=== PATIENT | female | born 1980 | race Caucasian/White ===

== ENCOUNTER 2016-12-10 15:00 | Emergency (ER) | payer OTHER ==
[2016-12-10 15:37] VITALS: BP 127/83
[2016-12-10] MEDS ORDERED: DEXAMETHASONE 10 MG/ML VIAL PO STA (16:54)
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
[2016-12-10] MEDS ORDERED: DEXAMETHASONE 10 MG/ML VIAL ONE (17:02)
== END 2016-12-10 17:04 | disposition home or self-care (01) ==
LOC: ED 15:00
DX: J01.00 Acute maxillary sinusitis, unspecified (principal); F17.200 Nicotine dependence, unspecified, uncomplicated
CPT/HCPCS: 99283

== ENCOUNTER 2017-02-01 12:29 | Emergency (ER) | payer OTHER ==
[2017-02-01 12:43] VITALS: BP 118/74
[2017-02-01] MEDS ORDERED: AMOXICILLIN 250 MG CAPSULE PO STA (13:47)
[2017-02-01] MEDS ORDERED: IBUPROFEN 400 MG TABLET PO STA (13:47)
--- NOTE | 2017-02-01 13:50 | ED Physician Documentation ---
History of Present Illness - Stated complaint Stated Complaint: CONGESTED/FEVER - Chief complaint Chief Complaint: General - Additonal information Additional information: hx from pt 37 f denies preg fever R ear ache myalgias kids sick with fever cough KUMAR mylagia too Review of Systems Constitutional: reports: Fever, Myalgias, Fatigue Ears: reports: Ear pain Respiratory: denies: Cough GI: denies: Abdominal Pain, Nausea, Vomiting : denies: Now EGA Immunocompromised: denies: Immunocompromised PD PAST MEDICAL HISTORY - Past Medical History Past Medical History: Yes Respiratory: Pneumonia Musculoskeletal: Chronic back pain - Past Surgical History Past Surgical History: Yes 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, Other - Present Medications Home Medications: Ambulatory Orders Medication Instructions Recorded Confirmed Amox/Clav 875/125 [Augmentin] 1 each PO Q12H #20 tablet 12/10/16 Amoxicillin 500 mg PO Q8H #30 capsule 02/01/17 - Allergies Allergies/Adverse Reactions: Allergies Allergy/AdvReac Type Severity Reaction Status Date / Time avocado Allergy Nausea Verified 12/10/16 16:31 pepper Allergy Anaphylaxis Verified 12/10/16 16:31 - Social History Does the pt smoke?: Yes Smoking Status: Current every day smoker Does the pt drink ETOH?: No Does the pt have substance abuse?: Yes - Immunizations Immunizations are current?: Yes - POLST Patient has POLST: No PD ED PE NORMAL - Vitals Vital signs reviewed: Yes - General General: Alert and oriented X 3 - HEENT HEENT: Moist mucous membranes. No: Ears normal (R AOM) - Neck Neck: Supple, no meningeal sign - Cardiac Cardiac: RRR - Respiratory Respiratory: No respiratory distress, Clear bilaterally - Derm Derm: Normal color - Extremities Extremities: Normal ROM s pain - Neuro Neuro: Alert and oriented X 3 Results - Vitals Vitals: Vital Signs - 24 hr 02/01/17 12:42 Temperature 36.3 C L Heart Rate 62 Respiratory 16 Rate Blood Pressure 118/74 O2 Saturation 99 Oxygen O2 Source Room air - Labs Labs: Laboratory Tests 02/01/17 13:44 Influenza A (Rapid) Negative Influenza B (Rapid) Negative Influenza Types A,B Ag - Departure - Departure Disposition: Home, Self Care Clinical Impression: Otitis media Qualifiers: Otitis media type: allergic Chronicity: acute Laterality: right Recurrence: not specified as recurrent Qualified Code(s): H65.111 - Acute and subacute allergic otitis media (mucoid) (sanguinous) (serous), right ear Condition: Good Instructions: ED Otitis Media Acute Adult Prescriptions: Amoxicillin 500 mg PO Q8H #30 capsule Comments: The influenza swab was negative (so doubtful any of the three of you have influenza) Your son's xray does not show pneumonia (so doubtful any of the three of you have pneumonia) But you have an ear infection so I have prescribed antibiotics
[2017-02-01] MEDS ORDERED: AMOXICILLIN 250 MG CAPSULE PO ONE (14:23)
[2017-02-01] MEDS ORDERED: IBUPROFEN 400 MG TABLET PO ONE (14:23)
== END 2017-02-01 15:52 | disposition home or self-care (01) ==
LOC: ED 12:29
DX: H65.111 Acute and subacute allergic otitis media (mucoid) (sanguinous) (serous), right ear (principal); F17.200 Nicotine dependence, unspecified, uncomplicated
CPT/HCPCS: 87275; 87276; 99283; A9270

== ENCOUNTER 2017-04-25 16:18 | Emergency (ER) | payer OTHER ==
[2017-04-25 17:12] LABS: BILIRUBIN,URINE NEGATIVE (NEGATIVE); GLUCOSE, URINE (UA) NEGATIVE (NEGATIVE); KETONES,URINE (UA) NEGATIVE (NEGATIVE); LEUKOCYTE ESTERASE, URINE NEGATIVE (NEGATIVE); NITRITE,URINE NEGATIVE (NEGATIVE); OCCULT BLOOD,URINE SMALL (NEGATIVE); PH,URINE 6.5 PH (5.0-7.5); PROTEIN,URINE NEGATIVE (NEGATIVE); UROBILINOGEN,URINE 0.2 (NORMAL) E.U./dL (NORMAL)
[2017-04-25 17:16] LABS: CLARITY,URINE CLEAR (CLEAR); HCG UR QUAL NEGATIVE
[2017-04-25 17:19] LABS: BACTERIA,URINE Rare /HPF (None Seen); SQUAMOUS EPITHELIAL CELL,UR MOD Squamous (<= Few)
--- NOTE | 2017-04-25 17:32 | ED Physician Documentation ---
History of Present Illness - Stated complaint Stated Complaint: NVD - Chief complaint Chief Complaint: Abd Pain - Additonal information Additional information: hx from pt 37 y/o f denies preg s.p tubal and LMP no to ER with congestion ear pain cough NVD works at [employer] and wants to know if she is contagious Review of Systems Constitutional: denies: Fever Ears: reports: Ear pain Nose: reports: Congestion Throat: reports: Sore throat (mild - scratchy) Respiratory: reports: Cough GI: reports: Vomiting, Diarrhea. 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, Other - Present Medications Home Medications: Ambulatory Orders Medication Instructions Recorded Confirmed Amoxicillin 500 mg PO Q8H #21 capsule 04/25/17 Ondansetron Odt [Zofran] 4 mg TL Q6H PRN #10 tablet 04/25/17 - Allergies Allergies/Adverse Reactions: Allergies Allergy/AdvReac Type Severity Reaction Status Date / Time avocado Allergy Nausea Verified 04/25/17 16:23 pepper Allergy Anaphylaxis Verified 04/25/17 16:23 - Social History Does the pt smoke?: Yes Smoking Status: Current every day smoker Does the pt drink ETOH?: No Does the pt have substance abuse?: Yes - Immunizations Immunizations are current?: Yes - POLST Patient has POLST: No PD ED PE NORMAL - Vitals Vital signs reviewed: Yes - HEENT HEENT: Moist mucous membranes (erythema and small exudate to pahrynx - am going to tx AOM with amox so did not strep swab). No: Ears normal (R AOM, L dull) - Neck Neck: Supple, no meningeal sign - Cardiac Cardiac: RRR - Respiratory Respiratory: No respiratory distress, Clear bilaterally - Abdomen Abdomen: Soft, Non tender - Neuro Neuro: Alert and oriented X 3 Results - Vitals Vitals: Vital Signs - 24 hr 04/25/17 16:21 Temperature 36.5 C Heart Rate 84 Respiratory 16 Rate Blood Pressure 129/84 H O2 Saturation 100 Oxygen O2 Source Room air - Labs Labs: Laboratory Tests 04/25/17 16:55 Urine Color YELLOW Urine Clarity CLEAR Urine pH 6.5 Ur Specific [place] 1.020 Urine Protein NEGATIVE Urine Glucose (UA) NEGATIVE Urine Ketones NEGATIVE Urine Occult Blood SMALL H Urine Nitrite NEGATIVE Urine Bilirubin NEGATIVE Urine Urobilinogen 0.2 (NORMAL) Ur Leukocyte Esterase NEGATIVE Urine RBC 6-10 H Urine WBC 0-3 Ur Squamous Epith Cells MOD Squamous H Urine Bacteria Rare Ur Microscopic Review INDICATED Urine Culture Comments NOT INDICATED Urine HCG, Qual NEGATIVE Departure - Departure Disposition: 01 Home, Self Care Clinical Impression: Viral syndrome Otitis media Qualifiers: Otitis media type: suppurative Chronicity: acute Laterality: right Recurrence: not specified as recurrent Spontaneous tympanic membrane rupture: without spontaneous rupture Qualified Code(s): H66.001 - Acute suppurative otitis media without spontaneous rupture of ear drum, right ear Condition: Good Instructions: ED Otitis Media Acute Adult, ED Viral Syndrome Follow-Up: Jose Avilez MD [Primary Care Provider] - Prescriptions: Amoxicillin 500 mg PO Q8H #21 capsule Ondansetron Odt [Zofran] 4 mg TL Q6H PRN #10 tablet PRN Reason: Nausea / Vomiting Comments: It looks like you have a viral infection causing the cough vomiting and diarrhea and have developed a secondary ear infection. 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
[2017-04-25 18:14] VITALS: BP 122/87
== END 2017-04-25 18:12 | disposition home or self-care (01) ==
LOC: ED 16:18
DX: B34.9 Viral infection, unspecified (principal); H66.001 Acute suppurative otitis media without spontaneous rupture of ear drum, right ear; F17.200 Nicotine dependence, unspecified, uncomplicated
CPT/HCPCS: 81001; 81003; 81025; 87086; 99283

== ENCOUNTER 2017-08-19 17:37 | Emergency (ER) | payer OTHER ==
[2017-08-19 17:53] VITALS: BP 140/86
--- NOTE | 2017-08-19 18:26 | ED Physician Documentation ---
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, Other - Present Medications Home Medications: Ambulatory Orders Medication Instructions Recorded Confirmed Amoxicillin 500 mg PO Q8H #21 capsule 04/25/17 Ondansetron Odt [Zofran] 4 mg TL Q6H PRN #10 tablet 04/25/17 Ibuprofen [Motrin] 400 mg PO Q6H PRN #30 tablet 08/19/17 - Allergies Allergies/Adverse Reactions: Allergies Allergy/AdvReac Type Severity Reaction Status Date / Time avocado Allergy Nausea Verified 04/25/17 16:23 pepper (genus Capsicum) Allergy Anaphylaxis Verified 04/25/17 16:23 [pepper] - Social History Does the pt smoke?: Yes Smoking Status: Current every day smoker Does the pt drink ETOH?: No Does the pt have substance abuse?: No - Immunizations Immunizations are current?: Yes - POLST Patient has POLST: No PD ED PE NORMAL - Extremities Extremities: Other (R knee + effusion, quad and patellar tendon NT, patella NT, TTP medial jt line, no ACL MCL LCL laxity, pain no opp with meniscal testing but then caught as I straightened the knee back out, MSV intact) Results - Vitals Vitals: Vital Signs - 24 hr 08/19/17 17:50 Temperature 36.9 C Heart Rate 87 Respiratory 18 Rate Blood Pressure 140/86 H O2 Saturation 100 Oxygen O2 Source Room air - Rads (name of study) knee Radiology: See rad report (neg) PD MEDICAL DECISION MAKING - Sepsis Event Vital Signs: Vital Signs - 24 hr 08/19/17 17:50 Temperature 36.9 C Heart Rate 87 Respiratory 18 Rate Blood Pressure 140/86 H O2 Saturation 100 Oxygen O2 Source Room air Departure - Departure Disposition: 01 Home, Self Care Clinical Impression: Knee injury Qualifiers: Encounter type: initial encounter Laterality: left Qualified Code(s): S89.92XA - Unspecified injury of left lower leg, initial encounter Condition: Good Instructions: ED Meniscal Injury Knee Poss Follow-Up: [facility] [Provider Group] Prescriptions: Ibuprofen [Motrin] 400 mg PO Q6H PRN #30 tablet PRN Reason: Pain Comments: The xray is fine. But your exam indicates you may have torn a meniscus. It is OK for you to go home We gave you a brace to support and protect the knee Please follow up with orthopedics for further evaluation Forms: Activity restrictions
--- NOTE | 2017-08-19 18:39 | XRAY Report ---
Procedure Date: 08/19/2017 Accession Number: [id number] / [id number] Procedure: XR - Knee 4 View RT CPT Code: FULL RESULT: EXAM: RIGHT KNEE RADIOGRAPHY EXAM DATE: 08/19/2017 06:19 PM. CLINICAL HISTORY: Twist injury. COMPARISON: None. TECHNIQUE: 4 views. FINDINGS: Bones: No acute fractures or suspicious bone lesions. Joints: No effusion. No subluxations. Soft Tissues: Unremarkable. IMPRESSION: Unremarkable knee radiography. [facility]
== END 2017-08-19 19:17 | disposition home or self-care (01) ==
LOC: ED 17:37
DX: S89.91XA Unspecified injury of right lower leg, initial encounter (principal); X50.0XXA Overexertion from strenuous movement or load, initial encounter; F17.200 Nicotine dependence, unspecified, uncomplicated
CPT/HCPCS: 99282; 99283

== ENCOUNTER 2017-11-05 10:01 | Outpatient (CLI) | payer OTHER ==
--- NOTE | 2017-11-05 15:55 | MRI Report ---
Reason: PAIN IN RIGHT KNEE Procedure Date: 11/05/2017 Accession Number: [id number] / [id number] Procedure: MRI - Knee RT W/O CPT Code: FULL RESULT: EXAM: RIGHT KNEE MRI WITHOUT CONTRAST EXAM DATE: 11/05/2017 10:31 AM. CLINICAL HISTORY: Right knee pain. COMPARISON: Radiograph 08/19/2017. TECHNIQUE: Multiplanar, multisequence T1-weighted and fluid-sensitive sequences of the knee without contrast. Other: None. FINDINGS: Bones: No fractures or subluxations. No marrow edema. No bone lesions. Articular Cartilage: Unremarkable. Medial Meniscus: The medial meniscus is intact. Lateral Meniscus: The posterior horn of the lateral meniscus has a blunted inner margin. There appears to be a flap fragment displaced inferior to the posterior horn (series 601, image 23; series 701, image 17). Cruciate Ligaments: The anterior and posterior cruciate ligaments are intact. Collateral Ligaments: The medial collateral and lateral collateral ligamentous structures are intact. Tendons: The quadriceps, patellar, semimembranosus, and popliteus tendons are unremarkable. Musculature: No edema or fatty atrophy. Other: No effusion. No popliteal cyst. No loose bodies. The medial and lateral retinacula are intact. The subcutaneous tissues and fat pads are unremarkable. IMPRESSION: 1. Flap tear of the lateral meniscus. [facility] MUSCULOSKELETAL RADIOLOGY SECTION
== END 2017-11-05 10:02 | disposition home or self-care (01) ==
LOC: DI 10:01
PROVIDERS: ATTEND Family Medicine
DX: M23.251 Derangement of posterior horn of lateral meniscus due to old tear or injury, right knee (principal)

== ENCOUNTER 2017-12-19 06:24 | Day surgery (SDC) | payer OTHER ==
[2017-12-19] MEDS ORDERED: ceFAZolin 2 GM/50 ML 2 GM/50 ML BAG IV ONE (06:26)
[2017-12-19] MEDS ORDERED: LACTATED RINGERS 1,000 ML IV ONE ×2 (06:30→08:05)
[2017-12-19 06:53] LABS: HCG UR QUAL NEGATIVE
[2017-12-19] MEDS ORDERED: BUPIVACAINE 0.5% PF 30 ML VIAL ONE (07:09)
[2017-12-19] MEDS ORDERED: ROPIVACAINE 0.5% PF 20 ML AMPULE ONE (07:09)
[2017-12-19] MEDS ORDERED: EPINEPHrine 1 MG/ML AMP ONE (07:10)
--- NOTE | 2017-12-19 07:10 | ANESTHESIA ---
Pre-Anesthesia VS, & Labs - Diagnosis right knee meniscus tear - Procedure right knee arthroscopy, meniscus debridement Vital Signs: Temp Pulse Resp BP Pulse Ox 36.0 C L 78 16 132/89 H 100 12/19/17 06:36 12/19/17 06:36 12/19/17 06:36 12/19/17 06:36 12/19/17 06:36 Height 5 ft 10 in Weight (kg) 68.04 kg Body Mass Index 22.2 - NPO >8 hours - Is Patient ?: No - Lab Results Lab results reviewed: Yes Home Medications and Allergies Allergies/Adverse Reactions: Allergies Allergy/AdvReac Type Severity Reaction Status Date / Time avocado Allergy Nausea Verified 12/12/17 15:42 pepper (genus Capsicum) Allergy Anaphylaxis Verified 12/12/17 15:42 [pepper] Anes History & Medical History - Anesthetic History Anesthesia Complications: reports: Slow wake-up Family history of Anesthesia Complications: Denies Family history of Malignant Hyperthermia: Denies - Medical History Cardiovascular: reports: None Pulmonary: reports: Other Urinary: reports: None Musculoskeletal: reports: Other Endocrine/Autoimmune: reports: None Skin: reports: None Smoking Status: Current every day smoker - Surgical History Gynecologic: Dilation and currettage Orthopedic: Other Exam General: Alert, Oriented x3, Cooperative, No acute distress Dental: Other (crown) Mouth Openin Fingerbreadth Neck Mobility: Normal Mallampati classification: I Thyromental Distance: greater than 6 cm Respiratory: Lungs clear, Normal breath sounds, No respiratory distress, No accessory muscle use Cardiovascular: Regular rate, Normal S1, Normal S2, No murmurs Mental/Cognitive Status: Alert/Oriented X3, Normal for patient Cognitive Status: Within normal limits Plan Anesthesia Type: General Consent for Procedure(s) Verified and Reviewed: Yes Code Status: Attempt Resuscitation ASA classification: 2-Mild systemic disease Is this case an emergency?: No
[2017-12-19] MEDS ORDERED: BUPIVACAINE 0.25% PF 30 ML VIAL ONE (07:20)
[2017-12-19] MEDS ORDERED: BUPIVACAINE 0.25% PF 30 ML VIAL SUBQ ONE ×2 (08:00)
[2017-12-19] MEDS ORDERED: PROPOFOL 200 MG/20 ML VIAL IVP ONE (08:06)
[2017-12-19] MEDS ORDERED: KETOROLAC 30 MG/ML VIAL IVP ONE (08:06)
[2017-12-19] MEDS ORDERED: ONDANSETRON 4 MG/2 ML VIAL IVP ONE (08:06)
[2017-12-19] MEDS ORDERED: MIDAZOLAM 2 MG/2 ML VIAL IVP ONE (08:06)
[2017-12-19] MEDS ORDERED: DEXAMETHASONE 4 MG/ML VIAL IVP ONE (08:06)
[2017-12-19] MEDS: HYDROmorphone 1 MG/ML CARPUJECT ONE ×2 (08:35→08:53)
[2017-12-19] MEDS ORDERED: ACETAMINOPHEN 1,000 MG/100 ML 100 ML IV ONE (08:38)
[2017-12-19] MEDS ORDERED: ONDANSETRON 4 MG/2 ML VIAL IVP PRN (08:53)
[2017-12-19] MEDS ORDERED: oxyCODONE 5 MG TABLET PO PRN (08:53)
--- NOTE | 2017-12-19 09:11 | OPERATIVE REPORT ---
Operative Report - General Procedure Date: 12/19/17 Planned Procedure: right knee arthroscopic meniscus debridement Pre-Op Diagnosis: right knee lateral meniscus tear Procedure Performed: Right knee arthroscopic lateral meniscus debridement Post Op Diagnosis: right knee lateral meniscus tear - Procedure Note Primary Surgeon: Laureano Mcmahan Secondary Surgeon: Pawel Manzanares Anesthesia Technique: General LMA Pathology: None IV Fluids (mL): 1,000 Estimated Blood Loss (mL): 1 Complications: None - Other Other Information/Narrative: Indication For Surgery: 37F who injured her knee in July 2017 while running. She has persistent pain and mechanical symptoms that have no responded to conservative measures. The risks, benefits, and alternatives were discussed. Risks include pain, bleeding, infection, damage to nearby structures and cartilage, lack of symptom relief, need for further surgery, DVT, PE, stroke, and . Written consent was obtained. Examination Under Anesthesia: ROM equal to the contralateral side. Stable dial at 30 & 90 degrees. Stable to varus and valgus stressing at 0 & 30 degrees. 1A [place]. Normal Pivot shift. Diagnostic Arthroscopy: no loose bodies. Synovium is injected. Patella cartilage intact. Trochlear cartilage intact. Medial femoral condyle cartilage normal. Medial tibial plateau cartilage normal. Medial meniscus normal. ACL was intact. PCL was intact. Lateral femoral condyle cartilage normal. Lateral tibial plateau cartilage normal. Lateral meniscus large, displaced complex tear with a large horizontal component in the posterior horn and body. Procedure in Detail: The patient was met in the pre-operative hold area on the day of the procedure. The operative extremity was signed and questions were answered. The patient was brought to the operating room and a general anesthetic was administered. Supine position was used and bony prominences were padded. An examination under anesthesia was performed. Standard prepping and draping was performed. A time out confirmed patient identification, laterality, procedure, allergies, antibiotics, and images. A standard diagnostic arthroscopy of the knee was performed through anterolateral and anteromedial portal sites. The anteromedial portal was created under direct visualization after localizing with a spinal needle. The findings can be found above. I then proceeded to debride the lateral mensiscus tear with biters and a shaver. I took the inferior leaflet of the horizontal tear. The meniscus edges were shaved smooth. Final images were taken and all arthroscopic fluid and instruments were removed from the knee. The incisions were closed with buried monocryl sutures. Steri strips were applied. 10cc of 0.25% Marcaine without epinephrine was injected near the portal sites. A sterile dressing and compression stocking was placed. The patient was awakened and transferred to recovery in stable condition.
[2017-12-19] MEDS ORDERED: oxyCODONE 5 MG TABLET ONE (09:46)
[2017-12-19 09:58] VITALS: BP 120/70
== END 2017-12-19 06:25 | disposition home or self-care (01) ==
LOC: SDS 06:24
PROVIDERS: ATTEND Orthopaedic Surgery
PROC: 0SBC4ZZ Excision of Right Knee Joint, Percutaneous Endoscopic Approach (ICD-10-PCS; principal; 2017-12-19 07:30)
DX: M23.251 Derangement of posterior horn of lateral meniscus due to old tear or injury, right knee (principal); M79.7 Fibromyalgia; F17.210 Nicotine dependence, cigarettes, uncomplicated; Z79.891 Long term (current) use of opiate analgesic; Z79.1 Long term (current) use of non-steroidal anti-inflammatories (NSAID)
CPT/HCPCS: 29881; 81025; A9270; J0131; J0690; J1170; J7120

== ENCOUNTER 2018-05-18 15:48 | Emergency (ER) | payer OTHER ==
[2018-05-18 15:55] VITALS: BP 142/83
--- NOTE | 2018-05-18 16:04 | ED Physician Documentation ---
PD HPI LOWER EXT INJURY - Stated complaint Stated Complaint: RT KNEE PAIN - Chief complaint Chief Complaint: Ext Problem - History obtained from History obtained from: Patient - History of Present Illness PD HPI LOW EXT INJURY LOCATION: Right, Knee Type of injury: Other (She is a history of meniscus repair on the right. Yesterday she was shifting her weight while on the couch and crossing her legs and she felt a pop on the posterior lateral right knee has had moderate pain and some locking ever since. She declines pain medication. 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 - Present Medications Home Medications: Ambulatory Orders Medication Instructions Recorded Confirmed Ibuprofen [Motrin] 400 mg PO Q6H PRN #30 tablet 08/19/17 12/19/17 - Allergies Allergies/Adverse Reactions: Allergies Allergy/AdvReac Type Severity Reaction Status Date / Time avocado Allergy Nausea Verified 05/18/18 15:51 pepper (genus Capsicum) Allergy Anaphylaxis Verified 05/18/18 15:51 [pepper] - Social History Does the pt smoke?: Yes Smoking Status: Current every day smoker Does the pt drink ETOH?: No Does the pt have substance abuse?: No - Immunizations Immunizations are current?: Yes - POLST Patient has POLST: No PD ED PE NORMAL - Vitals Vital signs reviewed: Yes - General General: Alert and oriented X 3, No acute distress - Extremities Extremities: Other (The right knee has a small effusion. There is no bony tenderness. She is tender over the hamstring insertion with laterally. ACL, PCL, LCL, MCL are all intact and negative grind testing.) - Neuro Neuro: Alert and oriented X 3, Normal speech Results - Vitals Vitals: Vital Signs - 24 hr 05/18/18 15:51 Temperature 36.6 C Heart Rate 78 Respiratory 16 Rate Blood Pressure 142/83 H O2 Saturation 100 Oxygen O2 Source Room air PD MEDICAL DECISION MAKING - ED course ED course: 38-year-old woman who has had a meniscus repair on the right in the past presents after a pop with low mechanism. Exam is really only consistent with may be a hamstring strain. She was placed in a knee immobilizer and conservative care was advised to follow-up with her orthopedist if not better. Departure - Departure Disposition: 01 Home, Self Care Clinical Impression: Knee injury Qualifiers: Encounter type: initial encounter Laterality: right Qualified Code(s): S89.91XA - Unspecified injury of right lower leg, initial encounter Condition: Good Record reviewed to determine appropriate education?: Yes Instructions: ED Effusion Knee Comments: Ibuprofen as needed for pain, wear the splint for comfort but she do not need to wear it sleeping or showering. If not better within the week [place] Your blood pressure was elevated today on check into the emergency department. This does not mean that you have hypertension, it is a common phenomenon to come to the emergency department and have elevated blood pressure. I recommend that you see your primary care physician within the week to have it rechecked when you are feeling better. Forms: Activity restrictions
== END 2018-05-18 16:07 | disposition home or self-care (01) ==
LOC: ED 15:48
DX: S89.91XA Unspecified injury of right lower leg, initial encounter (principal); X58.XXXA Exposure to other specified factors, initial encounter; M25.461 Effusion, right knee; Z98.890 Other specified postprocedural states; R03.0 Elevated blood-pressure reading, without diagnosis of hypertension; F17.200 Nicotine dependence, unspecified, uncomplicated
CPT/HCPCS: 99283

== ENCOUNTER 2018-06-25 08:38 | Emergency (ER) | payer OTHER ==
--- NOTE | 2018-06-25 09:03 | ED Physician Documentation ---
History of Present Illness - Stated complaint Stated Complaint: SWOLLEN HAND - Chief complaint Chief Complaint: Ext Problem - History obtained from History obtained from: Patient - History of Present Illness Timing: Last night Pain level max: 6 Pain level now: 5 - Additonal information Additional information: 38 year old female with redness and swelling the R 3rd MCP joint. Better with rest and worse with movement. States started after "flicking a cigarette". 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 : None HEENT: None Psych: Depression, Anxiety Musculoskeletal: Other Derm: None - Past Surgical History Past Surgical History: Yes Ortho: Arthroscopic surgery, Spine surgery /CONTAINER REPAIRER: Dilation and currettage - Present Medications Home Medications: Ambulatory Orders Medication Instructions Recorded Confirmed Meloxicam [Mobic] 15 mg PO DAILY PRN #20 tablet 06/25/18 - Allergies Allergies/Adverse Reactions: Allergies Allergy/AdvReac Type Severity Reaction Status Date / Time avocado Allergy Nausea Verified 06/25/18 08:51 pepper (genus Capsicum) Allergy Anaphylaxis Verified 06/25/18 08:51 [pepper] - Social History Does the pt smoke?: Yes Smoking Status: Current every day smoker Does the pt drink ETOH?: Yes Does the pt have substance abuse?: Yes Substance Use and Type: Marijuana - Immunizations Immunizations are current?: Yes - POLST Patient has POLST: No PD ED PE NORMAL - Vitals Vital signs reviewed: Yes - General General: Alert and oriented X 3, No acute distress, Well developed/nourished - HEENT HEENT: Moist mucous membranes - Derm Derm: Warm and dry - Extremities Extremities: Other (R hand 3rd MCP - mild swelling and erythema to the MCP joint. NVI. o/w normal hand exam) - Neuro Neuro: Alert and oriented X 3 - Psych Psych: Normal mood, Normal affect Results - Vitals Vitals: Vital Signs - 24 hr 06/25/18 06/25/18 08:43 09:50 Temperature 36.4 C L 36.5 C Heart Rate 72 63 Respiratory 18 14 Rate Blood Pressure 156/98 H 127/96 H O2 Saturation 100 99 Oxygen O2 Source Room air - Rads (name of study) R hand xray Radiology: Prelim report reviewed, EMP read contemporaneously, See rad report (normal) PD MEDICAL DECISION MAKING - ED course Complexity details: reviewed results, re-evaluated patient, considered differential, d/w patient ED course: 38-year-old female with what appears to be a tendon injury and the right third M CP joint. No acute findings on x-ray. Does not have a full rupture, she is able to move the finger even against resistance. Placed in a foam splint for comfort. Neurovascularly intact. Patient counseled regarding signs and symptoms for which I believe and urgent re-evaluation would be necessary. Patient with good understanding of and agreement to plan and is comfortable going home at this time This document was made in part using voice recognition software. While efforts are made to proofread this document, sound alike and grammatical errors may occur. Departure - Departure Disposition: 01 Home, Self Care Clinical Impression: Tendonitis of finger Condition: Good Instructions: ED Rupture Tendon Finger Follow-Up: your,doctor in 1 week [Other] Prescriptions: Meloxicam [Mobic] 15 mg PO DAILY PRN #20 tablet PRN Reason: pain Comments: Wear the splint for the next 3-4 days. Follow-up with your doctor for further care. Occasionally these injuries will require physical therapy. Return if you worsen
--- NOTE | 2018-06-25 09:24 | XRAY Report ---
Reason: R 3rd MCP joint pain/swelling Procedure Date: 06/25/2018 Accession Number: [id number] / [id number] Procedure: XR - Hand 3 View RT CPT Code: FULL RESULT: EXAM: RIGHT HAND RADIOGRAPHY EXAM DATE: 06/25/2018 09:14 AM. CLINICAL HISTORY: Right hand pain. COMPARISON: None. TECHNIQUE: 3 views. FINDINGS: Bones: Normal. No fractures or bone lesions. Joints: Normal. No subluxations. Soft Tissues: Normal. No soft tissue swelling. IMPRESSION: Normal hand radiography. [facility]
[2018-06-25] MEDS ORDERED: MELOXICAM 7.5 MG TABLET PO STA (09:33)
[2018-06-25 09:51] VITALS: BP 127/96
== END 2018-06-25 09:55 | disposition home or self-care (01) ==
LOC: ED 08:38
DX: M77.8 Other enthesopathies, not elsewhere classified (principal); F17.200 Nicotine dependence, unspecified, uncomplicated
CPT/HCPCS: 73130; 99283; A9270

== ENCOUNTER 2020-12-30 23:35 | Emergency (ER) | payer OTHER ==
[2020-12-30 23:43] VITALS: BP 176/101
--- NOTE | 2020-12-30 23:52 | ED Physician Documentation ---
PD HPI LOWER EXT INJURY - Stated complaint Stated Complaint: R FOOT INJURY - Chief complaint Chief Complaint: Trauma Ext - History obtained from History obtained from: Patient - History of Present Illness PD HPI LOW EXT INJURY LOCATION: Right, Foot Type of injury: Twist (she was at work earlier today and stepped unevenly and felt pain in foot. Improved reasonably. Then home shortly ago and stood up on her toes to reach up and felt pop and pain 5th MT area. Hurts for weight bearing.) Timing - onset: Today Timing - details: Abrupt onset, Still present Worsened by: Moving, Palpating Associated symptoms: Swelling (locally over distal 5th MT.). 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 : None HEENT: None Psych: Depression, Anxiety Musculoskeletal: Other Derm: None - Past Surgical History Past Surgical History: Yes Ortho: Arthroscopic surgery, Spine surgery /JEWEL LATHE OPERATOR: Dilation and currettage, Tubal ligation - Present Medications Home Medications: Ambulatory Orders Medication Instructions Recorded Confirmed No Known Home Medications 12/30/20 12/30/20 - Allergies Allergies/Adverse Reactions: Allergies Allergy/AdvReac Type Severity Reaction Status Date / Time avocado Allergy Nausea Verified 12/30/20 23:43 pepper (genus Capsicum) Allergy Anaphylaxis Verified 12/30/20 23:43 [pepper] - Social History Does the pt smoke?: Yes Smoking Status: Current every day smoker Does the pt drink ETOH?: Yes Does the pt have substance abuse?: Yes - Immunizations Immunizations are current?: Yes - POLST Patient has POLST: No PD ED PE NORMAL - Vitals Vital signs reviewed: Yes - General General: Alert and oriented X 3, No acute distress, Well developed/nourished - Derm Derm: Normal color, Warm and dry, No rash - Extremities Extremities: Other (right foot with local swelling and tenderness over 5th MTP area dorsally. NO noted deformity. good color and cap refill in toes. ) - Neuro Neuro: No motor deficit, No sensory deficit Results - Vitals Vitals: Oxygen O2 Source Room air - Rads (name of study) right foot Radiology: Prelim report reviewed (no fractures. ), See rad report PD MEDICAL DECISION MAKING - ED course Complexity details: reviewed results (no fractures; presume sprain. ), considered differential, d/w patient Departure - Departure Disposition: 01 Home, Self Care Clinical Impression: Foot sprain Qualifiers: Encounter type: initial encounter Laterality: right Qualified Code(s): S93.601A - Unspecified sprain of right foot, initial encounter Condition: Stable Record reviewed to determine appropriate education?: Yes Instructions: ED Sprain Foot Comments: Any fractures on the x-ray. Obviously you are still hurting so the soft tissue of ligaments and muscles can be injured and account for the swelling and pain. The swelling and pain should decrease over several days or so. However the injury itself of the ligaments are tendons could take even a couple of weeks to heal up. You have some anti-inflammatory such as ibuprofen or naproxen 2-3 times a day for the next several days to week. Add Tylenol every 4-6 hours if needed for pain. Ice elevate and rest the foot often when you are able to reduce swelling. Firm soled shoe to reduce motion through the midfoot to help with the discomfort and improve healing. Use crutches episodically as needed for less weightbearing or nonweightbearing for comfort as well. Recheck if not fully improved over the next couple of weeks and reasonably improved over the next 3 to 5 days. Discharge Date/Time: 12/31/20 01:16
[2020-12-31] MEDS: ACETAMINOPHEN 325 MG TABLET PO STA (00:09)
[2020-12-31] MEDS: IBUPROFEN 600 MG TABLET PO STA (00:09)
--- NOTE | 2020-12-31 00:33 | XRAY Report ---
PROCEDURE: Foot 3 View RT INDICATIONS: 5th MT area pain with foot twist TECHNIQUE: 3 views of the foot were acquired. COMPARISON: None FINDINGS: Bones: No fractures or dislocations. No suspicious bony lesions. Soft tissues: No tibiotalar joint effusion. Achilles tendon appears normal. IMPRESSION: No acute fracture. No osseous lesion. If symptoms and/or clinical suspicion for pathology continue, f urther assessment with repeat plain films, or advanced imaging (e.g., CT, MRI, or bone scan) is recom mended for further assessment. Reviewed by: Felecia Gibson MD on 12/31/2020 12:32 AM PDT Approved by: Felecia Gibson MD on 12/31/2020 12:32 AM PDT Station ID: [id number]
[2020-12-31] MEDS: HYDROcod/ACETAM 5/325 MG TABLET PO STA (00:59)
== END 2020-12-31 01:16 | disposition home or self-care (01) ==
LOC: ED 23:35
DX: S93.601A Unspecified sprain of right foot, initial encounter (principal); X50.1XXA Overexertion from prolonged static or awkward postures, initial encounter; Y92.89 Other specified places as the place of occurrence of the external cause; F17.200 Nicotine dependence, unspecified, uncomplicated
CPT/HCPCS: 73630; 99282; 99283; A9270

== ENCOUNTER 2021-01-19 08:00 | Outpatient (CLI) | payer OTHER ==
--- NOTE | 2021-01-19 12:22 | XRAY Report ---
PROCEDURE: Foot 3 View RT INDICATIONS: RIGHT FOOT PAIN TECHNIQUE: 30 views of the foot were acquired. COMPARISON: 12/30/2020 FINDINGS: No acute fracture. Plantar flexion of the talus noted. There is abnormal Meary's angle in keeping wit h pes planus. No definite hallux valgus. Joint spaces grossly preserved. Soft tissues unremarkable. IMPRESSION: Pes planus Reviewed by: Tanmay Gonzalez MD on 01/19/2021 12:21 PM PST Approved by: Tanmay Gonzalez MD on 01/19/2021 12:21 PM PST Station ID: [id number]
== END 2021-01-19 23:59 | disposition home or self-care (01) ==
LOC: DI.N 08:00
PROVIDERS: ATTEND Physician Assistant
DX: M79.671 Pain in right foot (principal); M21.41 Flat foot [pes planus] (acquired), right foot

== ENCOUNTER 2021-03-02 18:19 | Outpatient (CLI) | payer OTHER ==
--- NOTE | 2021-03-02 15:20 | XRAY Report ---
PROCEDURE: Foot 3 View RT INDICATIONS: NONDISPLACED FX OF R 4TH METATARSAL TECHNIQUE: 3 views of the foot were acquired. COMPARISON: Plain films dated 01/19/2021 FINDINGS: Bones: There is sclerosis and ill-defined lucency within the proximal aspect of the fourth metatarsal . No suspicious bony lesions. Soft tissues: No tibiotalar joint effusion. Achilles tendon appears normal. IMPRESSION: Healing fourth metatarsal fracture. Reviewed by: Felecia Gibson MD on 03/02/2021 3:19 PM PST Approved by: Felecia Gibson MD on 03/02/2021 3:19 PM PST Station ID: [id number]
== END 2021-03-02 23:59 | disposition home or self-care (01) ==
LOC: DI.N 18:19
PROVIDERS: ATTEND Physician Assistant
DX: S92.344D Nondisplaced fracture of fourth metatarsal bone, right foot, subsequent encounter for fracture with routine healing (principal)

== ENCOUNTER 2021-03-05 09:20 | Emergency (ER) | payer OTHER ==
[2021-03-05 09:39] VITALS: BP 150/92
--- NOTE | 2021-03-05 10:24 | ED Physician Documentation ---
PD HPI HEENT - Stated complaint Stated Complaint: MOUTH PX - Chief complaint Chief Complaint: Heent - History obtained from History obtained from: Patient - History of Present Illness Timing - onset: How many days ago (3) Timing - duration: Days (3) Timing - details: Gradual onset, Still present Location: Tooth Improves: Medication Worsens: Everything Associated symptoms: Trismus, Swollen nodes, Headache. No: Fever, Congestion, Rhinorrhea, Cough Similar symptoms before: Diagnosis (bad tooth) Recently seen: Not recently seen - Additional information Additional information: Previously well 41-year-old female has developed some pain in the right lower molar and this pain has increased over the last 2 days to the point where she is unable to sleep or eat. She has come to the emergency department unable to find a dentist that is open. Review of Systems Constitutional: denies: Fever Eyes: denies: Decreased vision Ears: denies: Ear pain Nose: reports: Congestion. 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 CREATIVE DIRECTOR: Dilation and currettage, Tubal ligation - Present Medications Home Medications: Ambulatory Orders Medication Instructions Recorded Confirmed Amoxicillin 875 mg PO BID #14 tablet 03/05/21 Oxycodone HCl/Acetaminophen 1 - 2 each PO Q6H PRN #14 tablet 03/05/21 [Percocet 5-325 mg Tablet] - Allergies Allergies/Adverse Reactions: Allergies Allergy/AdvReac Type Severity Reaction Status Date / Time avocado Allergy Nausea Verified 03/05/21 09:39 pepper (genus Capsicum) Allergy Anaphylaxis Verified 03/05/21 09:39 [pepper] - Social History Does the pt smoke?: Yes Smoking Status: Current every day smoker Does the pt drink ETOH?: Yes Does the pt have substance abuse?: Yes - Immunizations Immunizations are current?: Yes - POLST Patient has POLST: No PD ED PE NORMAL - Vitals Vital signs reviewed: Yes (Hypertensive) - General General: Alert and oriented X 3, Well developed/nourished, Other (Line Pilot tone and flattened affect consistent with pain) - HEENT HEENT: Atraumatic, PERRL, EOMI, Ears normal, Other (There is a right rear molar lower that is filled and tender to palpation as well as swelling to the gingiva that is also exquisitely tender. 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 Departure - Departure Disposition: 01 Home, Self Care Clinical Impression: Dental abscess Condition: Stable Instructions: ED Abscess Dental Follow-Up: SENG Gould [Provider Group] Prescriptions: Amoxicillin 875 mg PO BID #14 tablet Oxycodone HCl/Acetaminophen [Percocet 5-325 mg Tablet] 1 - 2 each PO Q6H PRN #14 tablet PRN Reason: pain
== END 2021-03-05 10:46 | disposition home or self-care (01) ==
LOC: ED 09:20
DX: K04.7 Periapical abscess without sinus (principal); F17.200 Nicotine dependence, unspecified, uncomplicated
CPT/HCPCS: 99282

== ENCOUNTER 2022-02-28 10:35 | Emergency (ER) | payer OTHER ==
[2022-02-28] MEDS ORDERED: METOCLOPRAMIDE 10 MG/2 ML VIAL IVP STA (11:46)
[2022-02-28] MEDS ORDERED: KETOROLAC 15 MG/ML VIAL IVP STA (11:46)
[2022-02-28] MEDS ORDERED: SODIUM CHLORIDE 0.9% 1,000 ML IV STA (11:46)
[2022-02-28] MEDS ORDERED: diphenhydrAMINE INJ 50 MG/ML VIAL IVP STA (11:46)
--- NOTE | 2022-02-28 11:47 | ED Physician Documentation ---
History of Present Illness - Stated complaint Stated Complaint: DEHYDRATED/MIGRAINE - Chief complaint Chief Complaint: Fever - History obtained from History obtained from: Patient - Additonal information Additional information: 42-year-old woman with history of chronic migraines, her migraines are usually right before her menses. Yesterday she developed a stomach issue when she was vomiting and fatigued all day with a low-grade fever. There is no associated diarrhea or stomach pain. That is resolved but woke up this morning with her usual migraine. No fever today, no neck stiffness. No sudden onset headache. It is not the worst headache of her life. Review of Systems Constitutional: reports: Fever (Yesterday, gone), Fatigue Cardiac: denies: Palpitations Respiratory: denies: Dyspnea, Cough GI: reports: Nausea, Vomiting. 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 : None HEENT: None Psych: Depression, Anxiety Musculoskeletal: Other Derm: None - Past Surgical History Past Surgical History: Yes Ortho: Arthroscopic surgery, Spine surgery /HOMELAND SECURITY PROGRAM SPECIALIST: Dilation and currettage, Tubal ligation - Present Medications Home Medications: Ambulatory Orders Medication Instructions Recorded Confirmed SUMAtriptan [Imitrex] 25 mg PO BID PRN #20 tablet 02/28/22 - Allergies Allergies/Adverse Reactions: Allergies Allergy/AdvReac Type Severity Reaction Status Date / Time avocado Allergy Nausea Verified 02/28/22 10:56 pepper (genus Capsicum) Allergy Anaphylaxis Verified 02/28/22 10:56 [pepper] - Social History Does the pt smoke?: Yes Smoking Status: Current every day smoker Does the pt drink ETOH?: Yes Does the pt have substance abuse?: Yes - Immunizations Immunizations are current?: Yes - POLST Patient has POLST: No PD ED PE NORMAL - Vitals Vital signs reviewed: Yes - General General: Alert and oriented X 3, No acute distress - HEENT HEENT: PERRL, EOMI - Neck Neck: Supple, no meningeal sign, No bony TTP - Neuro Neuro: Alert and oriented X 3, 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 As such I doubt subarachnoid hemorrhage. There are no infectious symptoms such as fever or stiff neck to make me suspect meningitis. No carbon monoxide exposure by history. She was administered Reglan, Toradol, and Benadryl with only modest relief of her symptoms, subsequently subcutaneous Imitrex was curative. Departure - Departure Disposition: 01 Home, Self Care Clinical Impression: Dehydration Migraine headache Qualifiers: Migraine type: without aura Status migrainosus presence: with status migrainosus Intractability: not intractable Qualified Code(s): G43.001 - Migraine without aura, not intractable, with status migrainosus Condition: Good Record reviewed to determine appropriate education?: Yes Instructions: ED Dehydration, ED Headache Migraine Prescriptions: SUMAtriptan [Imitrex] 25 mg PO BID PRN #20 tablet PRN Reason: Headache Comments: Call your doctor to arrange a follow-up appointment, make the next available appointment. In the interim, return anytime if worse or if new symptoms develop. Forms: Activity restrictions
[2022-02-28] MEDS ORDERED: SUMAtriptan 6 MG/0.5 ML VIAL SUBQ STA (13:29)
[2022-02-28 13:55] VITALS: BP 153/94
== END 2022-02-28 14:01 | disposition home or self-care (01) ==
LOC: ED 10:35
DX: G43.001 Migraine without aura, not intractable, with status migrainosus (principal); E86.0 Dehydration; F17.200 Nicotine dependence, unspecified, uncomplicated
CPT/HCPCS: 96361; 96372; 96374; 96375; 99282; 99285; J1200; J2765

== ENCOUNTER 2023-07-18 09:35 | Emergency (ER) | payer OTHER ==
[2023-07-18] MEDS ORDERED: HYDROmorphone 0.5 MG/0.5 ML SYRINGE IVP STA (11:28)
--- NOTE | 2023-07-18 11:36 | ED Physician Documentation ---
PD HPI FEMALE - Stated complaint Stated Complaint: , CRAMPING - Chief complaint Chief Complaint: Abd Pain - Additional information Additional information: 43-year-old female presents emergency department for severe menstrual cramps. Patient says that this is never happened before she is has history of an ovarian cyst rupture, denies any chance of her being as she had her tubes tied 13 years ago. She has been having hot and cold flashes unsure if she is on any fevers or chills but reports that she is taken Tylenol ibuprofen and she has had little to no relief. Pain started on 4 AM suddenly woke her up from sleep and has been progressively getting worse. PD PAST MEDICAL HISTORY - Past Medical History Past Medical History: Yes Cardiovascular: None Respiratory: Other Endocrine/Autoimmune: None WARP CLAMPER: None : None HEENT: None Psych: Depression, Anxiety Musculoskeletal: Other Derm: None - Past Surgical History Past Surgical History: Yes Ortho: Arthroscopic surgery, Spine surgery /WARP CLAMPER: Dilation and currettage, Tubal ligation - Present Medications Home Medications: Ambulatory Orders Medication Instructions Recorded Confirmed Doxycycline [Vibramycin] 100 mg PO BID 7 Days #13 tablet 07/18/23 Multivitamin 1 each PO DAILY 07/18/23 07/18/23 Oxycodone HCl/Acetaminophen 1 each PO Q6HR PRN 07/18/23 07/18/23 [Percocet 10-325 mg Tablet] metroNIDAZOLE [Flagyl] 500 mg PO BID 7 Days #13 tablet 07/18/23 - Allergies Allergies/Adverse Reactions: Allergies Allergy/AdvReac Type Severity Reaction Status Date / Time avocado Allergy Nausea Verified 07/18/23 09:48 pepper (genus Capsicum) Allergy Anaphylaxis Verified 07/18/23 09:48 [pepper] - Social History Does the pt smoke?: Yes Smoking Status: Current every day smoker Does the pt drink ETOH?: Yes Does the pt have substance abuse?: Yes - Immunizations Immunizations are current?: Yes - POLST Patient has POLST: No PD ED PE NORMAL - Vitals Vital signs reviewed: Yes - General General: Alert and oriented X 3, No acute distress, Well developed/nourished - Female Female : Bookmaker'S 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 present (Glenys CARRIZALES present), Other (Negative chandelier sign, No malodorous vaginal discharge, no ulcers normal cervix no abnormal external vaginal findings.) - Back Back: No CVA TTP - Derm Derm: Normal color, Warm and dry, No rash Results - Vitals Vitals: Vital Signs - 24 hr 07/18/23 07/18/23 07/18/23 09:43 12:41 13:51 Temperature 36.3 C L Heart Rate 73 83 67 Respiratory 22 15 16 Rate Blood Pressure 166/93 H 126/72 133/78 H O2 Saturation 100 97 98 Oxygen O2 Source Room air - Labs Labs: Microbiology 07/18/23 13:05 Wet Prep - Final Vaginal Laboratory Tests 07/18/23 07/18/23 07/18/23 11:30 11:40 11:40 WBC 21.4 H RBC 5.15 Hgb 15.1 Hct 45.7 MCV 88.7 MCH 29.3 MCHC 33.0 RDW 12.6 Plt Count 385 MPV 10.2 Neut # (Auto) Not Reportable Lymph # (Auto) Not Reportable [place] # (Auto) Not Reportable Eos # (Auto) Not Reportable Baso # (Auto) Not Reportable Absolute Nucleated RBC Not Reportable Total Counted 100 Band Neuts % (Manual) 1 Abnorm Lymph % (Manual) 0 Nucleated RBC % Not Reportable Neutrophils # (Manual) 19.7 H Lymphocytes # (Manual) 1.3 L Monocytes # (Manual) 0.4 Eosinophils # (Manual) 0.0 Basophils # (Manual) 0.0 Differential Comment MANUAL DIFFERENTIAL Manual Slide Review Indicated Platelet Estimate NORMAL (130-450,000) Platelet Morphology NORMAL APPEARANCE RBC Morph Micro Appear NORMAL APPEARANCE Sodium 136 Potassium 3.7 Chloride 103 Carbon Dioxide 26 Anion Gap 7.0 BUN 15 Creatinine 0.8 Estimated GFR (MDRD) 79 L Glucose 126 H Calcium 10.2 Magnesium 1.7 Total Bilirubin 1.3 H AST 20 ALT 22 Alkaline Phosphatase 42 Total Protein 8.1 Albumin 5.0 Globulin 3.1 Albumin/Globulin Ratio 1.6 Lipase 19 Urine Color YELLOW Urine Clarity HAZY Urine pH 8.0 H Ur Specific [place] 1.020 Urine Protein NEGATIVE Urine Glucose (UA) NEGATIVE Urine Ketones 40 H Urine Occult Blood LARGE H Urine Nitrite NEGATIVE Urine Bilirubin NEGATIVE Urine Urobilinogen 0.2 (NORMAL) Ur Leukocyte Esterase NEGATIVE Urine RBC TNTC H Urine WBC 0-3 Ur Squamous Epith Cells RARE Squamous Urine Bacteria Few Ur Microscopic Review INDICATED Urine Culture Comments NOT INDICATED Urine HCG, Qual NEGATIVE Chlam trachomat DNA PCR N.gonorrhoeae DNA (PCR) T. vaginalis (PCR) 07/18/23 13:05 WBC RBC Hgb Hct MCV MCH MCHC RDW Plt Count MPV Neut # (Auto) Lymph # (Auto) [place] # (Auto) Eos # (Auto) Baso # (Auto) Absolute Nucleated RBC Total Counted Band Neuts % (Manual) Abnorm Lymph % (Manual) Nucleated RBC % Neutrophils # (Manual) Lymphocytes # (Manual) Monocytes # (Manual) Eosinophils # (Manual) Basophils # (Manual) Differential Comment Manual Slide Review Platelet Estimate Platelet Morphology RBC Morph Micro Appear Sodium Potassium Chloride Carbon Dioxide Anion Gap BUN Creatinine Estimated GFR (MDRD) Glucose Calcium Magnesium Total Bilirubin AST ALT Alkaline Phosphatase Total Protein Albumin Globulin Albumin/Globulin Ratio Lipase Urine Color Urine Clarity Urine pH Ur Specific [place] Urine Protein Urine Glucose (UA) Urine Ketones Urine Occult Blood Urine Nitrite Urine Bilirubin Urine Urobilinogen Ur Leukocyte Esterase Urine RBC Urine WBC Ur Squamous Epith Cells Urine Bacteria Ur Microscopic Review Urine Culture Comments Urine HCG, Qual Chlam trachomat DNA PCR NEGATIVE N.gonorrhoeae DNA (PCR) NEGATIVE T. vaginalis (PCR) POSITIVE A - Rads (name of study) Pelvic ultrasound Relevant Findings:: Final report received, EMP independent interpretation of test, Other (No acute pelvic process mild increase myometrial vascularity nonspecific) PD Medical Decision Making - ED course ED course: 43-year-old female presents emergency department for pelvic pain during menses, differentials include but are not limited to ovarian torsion, UTI, STI, PID. Labs are complete she does have quite significant leukocytosis 21.4 she remains afebrile here in the emergency department her neutrophils are also quite elevated at 19.7. She has no electrolyte abnormalities her urine is negative for any signs or symptoms of urinary tract infection. Patient does report that she is sexually active with no new sexual partners STD testing was complete and she did test positive for trichomonas. Patient was given an IM dose of Rocephin here in the emergency department and started on Flagyl and doxycycline here in the emergency department. Prescription sent to her preferred pharmacy. Patient told to avoid intercourse until repeat testing is negative and to inform all sexual partners to also be treated. Return precautions given at this point time patient is safe for discharge. Departure - Departure Disposition: 01 Home, Self Care Clinical Impression: Pelvic pain in female, Leukocytosis, Trichomonas vaginitis Condition: Good Instructions: STD, STD Poss Prescriptions: metroNIDAZOLE [Flagyl] 500 mg PO BID 7 Days #13 tablet Doxycycline [Vibramycin] 100 mg PO BID 7 Days #13 tablet Comments: Thank you for trusting us with your care. I am not seeing any urinary tract infections we have also completed a pelvic ultrasound which did not show any other acute abnormalities or findings. Your labs did show a quite elevated white count at 20. It is unsure if this is caused from stress/pain or infection although we are not seeing any active infection at this point in time. Prophylactically we went ahead and decided to give you some antibiotics on the off chance that you test positive for STDs. We will call you if your STD results come back positive within the next 3 days. Please come back to the emergency department if you are getting any worsening symptoms, fevers or chills, or any other concerning emergent symptoms. Please follow-up with your primary provider this week for further evaluation and possible [facility] RN referral. Forms: PCP List Discharge Date/Time: 07/18/23 13:51
[2023-07-18] MEDS: ONDANSETRON 4 MG/2 ML VIAL IVP STA (11:43)
[2023-07-18 11:45] LABS: BILIRUBIN,URINE NEGATIVE (NEGATIVE); GLUCOSE, URINE (UA) NEGATIVE (NEGATIVE); KETONES,URINE (UA) 40 mg/dL (NEGATIVE); LEUKOCYTE ESTERASE, URINE NEGATIVE (NEGATIVE); NITRITE,URINE NEGATIVE (NEGATIVE); OCCULT BLOOD,URINE LARGE (NEGATIVE); PROTEIN,URINE NEGATIVE (NEGATIVE); UROBILINOGEN,URINE 0.2 (NORMAL) E.U./dL (NORMAL)
[2023-07-18 11:47] LABS: CLARITY,URINE HAZY (CLEAR); HCG UR QUAL NEGATIVE
[2023-07-18] MEDS: KETOROLAC 30 MG/ML VIAL IVP STA (11:48)
[2023-07-18 11:50] LABS: BASOPHILS % (AUTO) 0.5 %; EOSINOPHILS % (AUTO) 0.1 %; HCT - HEMATOCRIT 45.7 % (37.0-47.0); HGB - HEMOGLOBIN 15.1 g/dL (12.0-16.0); LYMPHOCYTES % (AUTO) 5.8 %; MEAN CORPUSCULAR HEMOGLOBIN 29.3 pg (27.0-31.0); MEAN CORPUSCULAR VOLUME 88.7 fL (81.0-99.0); MEAN PLATELET VOLUME 10.2 fL (7.9-10.8); MONOCYTES % (AUTO) 3.7 %; NEUTROPHILS % (AUTO) 89.4 %; PLT - PLATELET COUNT 385 10^3/uL (130-450); RED BLOOD COUNT 5.15 10^6/uL (4.20-5.40); RED CELL DISTRIBUTION WIDTH 12.6 % (12.0-15.0); WHITE BLOOD COUNT 21.4 x10^3/uL (4.8-10.8)
[2023-07-18 11:56] LABS: BACTERIA,URINE Few /HPF (None Seen); RBC,URINE TNTC /HPF (0-5); SQUAMOUS EPITHELIAL CELL,UR RARE Squamous (<= Few); WBC,URINE 0-3 /HPF (0-5)
[2023-07-18 12:08] LABS: SLIDE REVIEW? Indicated
[2023-07-18 12:10] LABS: ALBUMIN/GLOBULIN RATIO 1.6 (1.0-2.2); BILIRUBIN,TOTAL 1.3 mg/dL (0.2-1.0); CALCIUM 10.2 mg/dL (8.5-10.3); CREATININE 0.8 mg/dL (0.6-1.3); MAGNESIUM 1.7 mg/dL (1.7-2.3); POTASSIUM 3.7 mmol/L (3.5-4.5); TOTAL PROTEIN 8.1 g/dL (6.4-8.9)
[2023-07-18 12:19] LABS: ABNORMAL LYMPHS % (MANUAL) 0 %
[2023-07-18 12:27] LABS: BAND NEUTROPHILS % (MANUAL) 1 %; DIFFERENTIAL COMMENT MANUAL DIFFERENTIAL; LYMPHOCYTES # (MANUAL) 1.3 10^3/uL (1.5-3.5); LYMPHOCYTES % (MANUAL) 6 %; MONOCYTES # (MANUAL) 0.4 10^3/uL (0.0-1.0); NEUTROPHILS # (MANUAL) 19.7 10^3/uL (1.5-6.6); PLATELET ESTIMATE, MANUAL NORMAL (130-450,000) (NORMAL); PLATELET MORPHOLOGY NORMAL APPEARANCE (NORMAL); RBC MORPHOLOGY (MULTIPLE) NORMAL APPEARANCE (NORMAL)
--- NOTE | 2023-07-18 12:34 | Ultrasound Report ---
PROCEDURE: Pelvic w/Doppler Limited INDICATIONS: severe pelvis pain TECHNIQUE: Real-time transabdominal scanning was performed of the pelvic organs, with image documentation. Dopp ler interrogation was performed of the ovaries bilaterally. COMPARISON: None. FINDINGS: Uterus: Uterus is anteverted and normal in size at 7.7 x 4.2 x 4.9 cm. The myometrium is homogeneou s. There is mild increased myometrial vascularity of uncertain clinical significance. The endometrium measures 3.6 mm in combined thickness. Ovaries: The right ovary measures 3.3 x 1.1 x 2.2 cm, with a calculated ovarian volume of 4.2 cc. T he left ovary measures 2.5 x 2 0.5-2.2 cm, with a calculated ovarian volume of 10.1 cc. Appropriate blood flow to the ovaries with Doppler interrogation. Less than 12 follicles can be seen in each ov lv. No adnexal masses are seen. No cystic lesions measuring greater than 3 cm. Other: No pathologic free abdominal or pelvic fluid. IMPRESSION: No acute pelvic process. Mild increased myometrial vascularity overall nonspecific. This can be seen with inflammation. Altern ately, this also can seen as a normal variant or potentially related to pelvic congestion syndrome. Reviewed by: Shikha Nazario MD on 07/18/2023 12:33 PM PDT Approved by: Shikha Nazario MD on 07/18/2023 12:33 PM PDT Station ID: [id number]
[2023-07-18] MEDS: HYDROmorphone 0.5 MG/0.5 ML SYRINGE IVP STA (12:39)
[2023-07-18] MEDS: DOXYCYCLINE 100 MG TABLET PO STA (13:33)
[2023-07-18] MEDS: LIDOCAINE 1% 2 ML VIAL MC ONE (13:33)
[2023-07-18] MEDS: metroNIDAZOLE 250 MG TABLET PO STA (13:33)
[2023-07-18] MEDS: cefTRIAXone 1 GM VIAL IM STA (13:34)
[2023-07-18 13:52] VITALS: BP 133/78; O2SAT 98
[2023-07-18 15:23] LABS: CHLAMYDIA TRACHOMATIS DNA NEGATIVE (NEGATIVE); NEISSERIA GONORRHOEAE DNA NEGATIVE (NEGATIVE)
[2023-07-18 15:33] LABS: TRICHOMONAS VAGINALIS DNA POSITIVE (NEGATIVE)
== END 2023-07-18 13:51 | disposition home or self-care (01) ==
LOC: ED 09:35
DX: A59.01 Trichomonal vulvovaginitis (principal); R10.2 Pelvic and perineal pain; D72.829 Elevated white blood cell count, unspecified; F17.200 Nicotine dependence, unspecified, uncomplicated; Z79.899 Other long term (current) drug therapy
CPT/HCPCS: 36415; 76856; 80053; 81001; 81025; 83690; 83735; 85025; 87210; 87491; 87591; 87661; 93976; 96372; 96374; 96375; 99284; 99285; A9270; J1170; 81003; 87081; 87086

== ENCOUNTER 2023-10-31 08:00 | Outpatient (CLI) | payer OTHER ==
[2023-10-31 20:51] LABS: CHLAMYDIA TRACHOMATIS DNA NEGATIVE (NEGATIVE); NEISSERIA GONORRHOEAE DNA NEGATIVE (NEGATIVE)
[2023-10-31 21:03] LABS: TRICHOMONAS VAGINALIS DNA POSITIVE (NEGATIVE)
== END 2023-10-31 23:59 | disposition home or self-care (01) ==
LOC: LAB.WC 08:00
PROVIDERS: ATTEND Nurse Practitioner
DX: Z11.3 Encounter for screening for infections with a predominantly sexual mode of transmission (principal)
CPT/HCPCS: 81514; 87491; 87591; 87661